=== PATIENT | male | born 1975 | race Caucasian/White ===

== ENCOUNTER 2017-04-21 22:31 | Emergency (ER) | payer BC ==
[2017-04-21 22:56] VITALS: BP 122/72
== END 2017-04-22 01:10 | disposition left against medical advice (07) ==
LOC: ED 22:31
DX: L02.91 Cutaneous abscess, unspecified (principal); Z53.21 Procedure and treatment not carried out due to patient leaving prior to being seen by health care provider

== ENCOUNTER 2018-12-04 19:29 | Emergency (ER) | payer BC ==
[2018-12-04 19:38] VITALS: BP 150/85
[2018-12-04] MEDS ORDERED: Amoxicillin/Clavulanate TAB* 875 MG PO ONE (19:46)
--- NOTE | 2018-12-04 19:49 | UC ---
Ear Complaint HPI - HPI Summary HPI Summary: 4 days of ear pain began left ear---then yesterday both ears- in the night last night had sudden onset of worsen left ear pain then drainage from ear---nasal and sinus congestion for 4-5 days - History of Current Complaint Chief Complaint: UCEar Stated Complaint: EAR ACHE Time Seen by Provider: 12/04/18 19:31 Hx Obtained From: Patient Onset/Duration: Gradual Onset, Lasting Days, Still Present Pain Intensity: 7 Pain Scale Used: 0-10 Numeric Aggravating Factors: Nothing Alleviating Factors: Nothing Associated Signs/Symptoms: Positive: Discharge - Allergies/Home Medications Allergies/Adverse Reactions: Allergies Allergy/AdvReac Type Severity Reaction Status Date / Time No Known Allergies Allergy Verified 12/04/18 19:38 PMH/Surg Hx/FS Hx/Imm Hx Previously Healthy: No - Surgical History Surgical History: Yes Surgery Procedure, Year, and Place: VEINOUS STRIPPING. VASECTOMY. TONSILS ADENOIDS - Family History Known Family History: Positive: None - Social History Occupation: Employed Full-time Lives: With Family Alcohol Use: Occasionally Substance Use Type: None Smoking Status (MU): Never Smoked Tobacco Review of Systems All Other Systems Reviewed And Are Negative: Yes Constitutional: Positive: Negative Skin: Positive: Negative Eyes: Positive: Negative ENT: Positive: Sore Throat, Ear Ache, Nasal Discharge, Sinus Congestion Respiratory: Positive: Negative Cardiovascular: Positive: Negative Gastrointestinal: Positive: Negative Genitourinary: Positive: Negative Motor: Positive: Negative Neurovascular: Positive: Negative Musculoskeletal: Positive: Negative Neurological: Positive: Negative Psychological: Positive: Negative Is Patient Immunocompromised?: No Physical Exam Triage Information Reviewed: Yes Appearance: Ill-Appearing, Pain Distress, Obese Vital Signs: Initial Vital Signs Temp 99.7 F 12/04/18 19:33 Pulse 72 12/04/18 19:33 Resp 16 12/04/18 19:33 BP 150/85 12/04/18 19:33 Pulse Ox 98 12/04/18 19:33 Vital Signs Reviewed: Yes Eye Exam: Normal Eyes: Positive: Conjunctiva Clear ENT Exam: Normal ENT: Positive: Normal ENT inspection, Hearing grossly normal, Pharynx normal, Nasal congestion, Nasal drainage, TM bulging - right, TM red - left and right, Sinus tenderness, Uvula midline, Other - left tm ruptured. Negative: Tonsillar swelling, Trismus, Muffled voice, Hoarse voice Dental Exam: Normal Neck exam: Normal Neck: Positive: Supple, Nontender, No Lymphadenopathy Respiratory Exam: Normal Respiratory: Positive: Chest non-tender, Lungs clear, Normal breath sounds, No respiratory distress, No accessory muscle use Cardiovascular Exam: Normal Cardiovascular: Positive: RRR, No Murmur, Pulses Normal, Brisk Capillary Refill Musculoskeletal Exam: Normal Musculoskeletal: Positive: Strength Intact, ROM Intact, No Edema Neurological Exam: Normal Neurological: Positive: Alert, Muscle Tone Normal Psychological Exam: Normal Skin Exam: Normal Ear Complaint Course/Dx - Course Course Of Treatment: d/c amoxicillin, augmentin, flonase, keep ears dry follow tm rupture and bp with Dr. Sargent in 2 weeks - Differential Dx/Diagnosis Provider Diagnosis: Acute rhinosinusitis, Eardrum rupture, left Discharge - Sign-Out/Discharge Documenting (check all that apply): Patient Departure All imaging exams completed and their final reports reviewed: No Studies - Discharge Plan Condition: Stable Disposition: HOME Prescriptions: Amoxicillin/Clavulanate TAB* [Augmentin TAB 875*] 875 mg PO BID #19 tab Fluticasone NASAL SPRAY 50MCG* [Flonase NASAL SPRAY 50MCG*] 2 spray BOTH NARES DAILY #1 btl Ibuprofen TAB* [Motrin TAB* 800 MG] 800 mg PO Q8H PRN #40 tab PRN Reason: pain Patient Education Materials: Sinusitis (ED), Ruptured Eardrum (ED), Hypertension (ED) Referrals: Nicolas Saregnt MD [Primary Care Provider] - 2 Weeks - Billing Disposition and Condition Condition: STABLE Disposition: Home - Attestation Statements Provider Attestation: Per institutional requirements, I have reviewed the chart, however, I was not consulted specifically or made aware of this patient by the midlevel provider. I did not personally evaluate, interact with , or disposition this patient.
== END 2018-12-04 19:55 | disposition home or self-care (01) ==
LOC: UCEAST 19:29
DX: H72.92 Unspecified perforation of tympanic membrane, left ear (principal); J32.9 Chronic sinusitis, unspecified
CPT/HCPCS: 99212; A9270-GY; G0463